=== PATIENT | male | born 1975 | race African-American/Black ===

== ENCOUNTER → 2016-12-23 | Outpatient (CLI) | payer OTHER ==
--- NOTE | 2016-12-23 15:58 | KCIC ---
CT sinus without contrast History: Chronic maxillary sinusitis, J32.0. Technique: CT of the sinuses was performed without intravenous contrast. Axial , sagittal, and coronal reconstructions were obtained. Exposure: One or more of the following individualized dose reduction techniques were utilized for this examination: 1. Automated exposure control 2. Adjustment of the mA and/or kV according to patient size 3. Use of iterative reconstruction technique Findings: Right frontal sinus is undeveloped. Left frontal sinus has appropriate appearance. Left frontal sinus as well as the ethmoid air cells and sphenoid sinus are clear. Bilateral maxillary sinus demonstrates minimal inferior mucosal thickening. Right maxillary sinus demonstrates mild inferior mucosal thickening. Bilateral ostiomeatal units are patent. No mucoperiosteal reaction is identified. Bilateral orbits and orbital contents appear intact. Mildly disconjugate gaze is seen. IMPRESSION: 1. Minimal left and mild right maxillary sinus mucosal thickening. Electronically signed by: Eliot Zambrano MD (12/23/2016 3:56 PM) [id number]
== END | disposition home or self-care (01) ==
LOC: KCIC CT 14:53
PROVIDERS: ATTEND Otolaryngology
DX: J32.0 Chronic maxillary sinusitis (principal)
CPT/HCPCS: 70486

== ENCOUNTER → 2018-09-03 | Outpatient (CLI) | payer OTHER ==
--- NOTE | 2018-09-03 14:52 | CARD ---
MR#: [id number] Date of Study: 09/03/2018 Ordering Physician: HERRERA FUNES, Referring Physician: HERRERA FUNES Tech: Yessica Cruz RDCS APPROVED REPORT EXAM: Two-dimensional and M-mode echocardiogram with Doppler and color Doppler. Other Information Quality : GoodHR: 80bpm Rhythm : NSR INDICATION Palpitations 2D DIMENSIONS RVDd2.4 (2.9-3.5cm)Left Atrium(2D)3.1 (1.6-4.0cm) IVSd1.2 (0.7-1.1cm)Aortic Root(2D)2.9 (2.0-3.7cm) LVDd3.7 (3.9-5.9cm)LVOT Diameter2.1 (1.8-2.4cm) PWd1.1 (0.7-1.1cm)LVDs2.6 (2.5-4.0cm) FS (%) 28.4 %SV32.3 ml LVEF(%)55.7 (>50%) M-Mode DIMENSIONS Left Atrium(MM)3.07 (2.5-4.0cm)Aortic Root3.04 (2.2-3.7cm) Aortic Valve AoV Peak [facility].119.2cm/sAoV VTI18.5cm AO Peak GR.5.7mmHgLVOT Peak [facility].108.1cm/s AO Mean GR.3mmHgAVA (VMAX)3.06cm2 DEMOND (VTI)3.00cm2 Mitral Valve MV E Pnhnhmju74.7cm/sMV DECEL [id number] MV A Xbtvqfes64.9cm/sE/A Ratio0.9 MV A [id number] Pulmonary Valve PV Peak Gkoplcwb21.4cm/s LEFT VENTRICLE The left ventricle is normal size. There is borderline to mild concentric left ventricular hypertroph y. The left ventricular systolic function is normal and the ejection fraction is within normal range. The Ejection Fraction is 55-60%. There is normal LV segmental wall motion. Transmitral Doppler flow pattern is Grade I-abnormal relaxation pattern. RIGHT VENTRICLE The right ventricle is normal size. There is normal right ventricular wall thickness. The right ventr icular systolic function is normal. ATRIA The left atrium size is normal. The right atrium size is normal. The interatrial septum is intact wit h no evidence for an atrial septal defect or patent foramen ovale as noted on 2-D or Doppler imaging. AORTIC VALVE The aortic valve is normal in structure and function. The aortic valve is trileaflet. Doppler and Col or Flow revealed no significant aortic regurgitation. There is no significant aortic valvular stenosi s. There is no aortic valvular vegetation. MITRAL VALVE The mitral valve is normal in structure and function. There is no evidence of mitral valve prolapse. There is no mitral valve stenosis. Doppler and Color Flow revealed no mitral valve regurgitation note d. TRICUSPID VALVE The tricuspid valve is normal in structure and function. Doppler and Color Flow revealed trace tricus pid valve regurgitation. There is no tricuspid valve prolapse or vegetation. There is no tricuspid va lve stenosis. PULMONIC VALVE The pulmonary valve is normal in structure and function. Doppler and Color Flow revealed trace pulmon ic valvular regurgitation. There is no pulmonic valvular stenosis. GREAT VESSELS The aortic root is normal in size. The ascending aorta is normal in size. The IVC is normal in size a nd collapses >50% with inspiration. PERICARDIAL EFFUSION There is no evidence of significant pericardial effusion. Critical Notification Critical Value: No <Conclusion> The left ventricle is normal size. The left ventricular systolic function is normal and the ejection fraction is within normal range. The Ejection Fraction is 55-60%. There is borderline to mild concentric left ventricular hypertrophy. There is no significant aortic valvular stenosis. Doppler and Color Flow revealed no significant aortic regurgitation. Doppler and Color Flow revealed no mitral valve regurgitation noted. Doppler and Color Flow revealed trace tricuspid valve regurgitation. Signed by : Yogesh Powers MD Electronically Approved : 09/03/2018 14:52:11
--- NOTE | 2018-09-06 09:01 | EKG ---
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 Very few supraventricular and ventricular ectopic beats noted. Few episodes of sinus tachycardia were seen. No significant arrhythmias were noted. CONCLUSIONS Holter monitor did not show any significant arrhythmias. Electronically Signed On 09-11-2018 12:50:16 CDT by Herrera Neil
== END | disposition home or self-care (01) ==
LOC: ECHO 10:04
PROVIDERS: ATTEND Internal Medicine Cardiovascular Disease
DX: I51.7 Cardiomegaly (principal)
CPT/HCPCS: 93225; 93226; 93306